=== PATIENT | female | born 1990 | race African-American/Black ===

== ENCOUNTER 2020-10-22 05:06 | Emergency (ER) | payer BC, MEDICAID ==
[~2020-10-22] VITALS: Ht 162.6 cm; Wt 107.0 kg
[2020-10-22 06:39] LABS: BASOPHILS % 0.5 % (0.0-2.0); EOSINOPHILS % 2.3 % (0.0-5.0); HEMOGLOBIN. 13.1 g/dL (12.0-16.0); LYMPHOCYTES % 22.4 % (20.0-50.0); MEAN CORPUSCULAR HEMOGLOBIN 28.8 pg (28.0-32.0); MEAN CORPUSCULAR VOLUME 86.1 fL (81.0-99.0); MEAN PLATELET VOLUME 8.9 fl (7.4-10.4); MONOCYTES % 8.6 % (2.0-8.0); NEUTROPHILS % 66.2 % (40.0-76.0); PLATELET 247 x1000/uL (130-400); RED BLOOD CELL COUNT 4.54 mill/uL (4.2-5.4); RED CELL DISTRIBUTION WIDTH 13.9 % (11.6-14.6)
[2020-10-22 06:46] LABS: CHLORIDE 111 mEq/L (98-107)
[2020-10-22] MEDS ORDERED: FAMOTIDINE 20MG/2ML VIAL IV STA (06:55)
[2020-10-22] MEDS ORDERED: SODIUM CHLORIDE 0.9% 1,000 ML IV ONE (07:00)
[2020-10-22 07:34] LABS: CLARITY URINE CLEAR (CLEAR); COLOR URINE YELLOW (YELLOW); KETONES URINE NEGATIVE (NEGATIVE); LEUKOCYTE ESTERASE URINE TRACE (NEGATIVE); NITRITE URINE NEGATIVE (NEGATIVE); OCCULT BLOOD URINE NEGATIVE (NEGATIVE); PROTEIN URINE NEGATIVE (NEGATIVE); UROBILINOGEN URINE 0.2 E.U./dL (0.2-1.0)
[2020-10-22 09:25] VITALS: BP 130/75
[2020-10-22] MEDS ORDERED: IOHEXOL-350 100 ML BOTTLE ONE (11:34)
== END 2020-10-22 09:29 | disposition home or self-care (01) ==
LOC: ER 05:06 → CANBEDREQ 13:17
DX: O26.893 Other specified pregnancy related conditions, third trimester (principal); J06.9 Acute upper respiratory infection, unspecified; R07.89 Other chest pain; Z3A.33 33 weeks gestation of pregnancy
CPT/HCPCS: 36415; 71045; 71275; 80053; 81003; 83880; 84484; 84702; 85025; 85379; 93005; 93970; 96361; 96374; 99285; J3490; J7030; Q9967

== ENCOUNTER 2021-02-04 23:21 | Emergency (ER) | payer BC, MEDICAID ==
[~2021-02-04] VITALS: Ht 162.6 cm; Wt 91.0 kg
[2021-02-05] MEDS ORDERED: MAGNESIUM/ALUMINUM HYDROXIDE/SIMETHICONE 30ML UDC PO STA (01:57)
[2021-02-05 02:12] LABS: BASOPHILS % 0.5 % (0.0-2.0); HEMATOCRIT. 39.7 % (36.0-48.0); HEMOGLOBIN. 13.7 g/dL (12.0-16.0); LYMPHOCYTES % 33.7 % (20.0-50.0); MEAN CORPUSCULAR HEMOGLOBIN 29.1 pg (28.0-32.0); MEAN CORPUSCULAR VOLUME 84.3 fL (81.0-99.0); MEAN PLATELET VOLUME 8.5 fl (7.4-10.4); MONOCYTES % 7.7 % (2.0-8.0); NEUTROPHILS % 55.1 % (40.0-76.0); PLATELET 272 x1000/uL (130-400); RED BLOOD CELL COUNT 4.71 mill/uL (4.2-5.4); RED CELL DISTRIBUTION WIDTH 14.7 % (11.6-14.6)
[2021-02-05 02:18] LABS: CHLORIDE 108 mEq/L (98-107)
[2021-02-05 02:22] LABS: HCG SCREEN NEGATIVE
[2021-02-05] MEDS ORDERED: KETOROLAC 15MG/ML VIAL IV NR (04:30)
[2021-02-05] MEDS ORDERED: ONDA4TAB5 MT (06:40)
[2021-02-05] MEDS ORDERED: PROT20 MT (06:40)
[2021-02-05 06:45] VITALS: BP 137/74
== END 2021-02-05 06:46 | disposition home or self-care (01) ==
LOC: ER 23:21
DX: R10.9 Unspecified abdominal pain (principal)
CPT/HCPCS: 36415; 76705; 80053; 83690; 84703; 85025; 96374; 99284; J1885

== ENCOUNTER 2021-11-07 18:24 | Emergency (ER) | payer BC, MEDICAID ==
[~2021-11-07] VITALS: Ht 162.6 cm; Wt 87.0 kg
[~2021-11-07 18:24] MED LIST: ONDA4TAB5 MT; PROT20 MT
[2021-11-07 19:01] VITALS: BP 146/86
[2021-11-07 20:16] LABS: BASOPHILS % 0.4 % (0.0-2.0); EOSINOPHILS % 1.9 % (0.0-5.0); HEMATOCRIT. 39.4 % (36.0-48.0); HEMOGLOBIN. 13.6 g/dL (12.0-16.0); LYMPHOCYTES % 23.9 % (20.0-50.0); MEAN CORPUSCULAR HEMOGLOBIN 29.4 pg (28.0-32.0); MEAN CORPUSCULAR VOLUME 85.2 fL (81.0-99.0); MEAN PLATELET VOLUME 8.6 fl (7.4-10.4); MONOCYTES % 12.1 % (2.0-8.0); NEUTROPHILS % 61.7 % (40.0-76.0); PLATELET 290 x1000/uL (130-400); RED BLOOD CELL COUNT 4.62 mill/uL (4.2-5.4); RED CELL DISTRIBUTION WIDTH 13.3 % (11.6-14.6)
[2021-11-07 20:23] LABS: CHLORIDE 107 mEq/L (98-107)
[2021-11-07 20:47] LABS: B-HCG QUANTITATIVE 35906 mIU/mL (<3)
[2021-11-07 21:21] LABS: CLARITY URINE CLEAR (CLEAR); COLOR URINE YELLOW (YELLOW); KETONES URINE NEGATIVE (NEGATIVE); LEUKOCYTE ESTERASE URINE NEGATIVE (NEGATIVE); NITRITE URINE NEGATIVE (NEGATIVE); OCCULT BLOOD URINE TRACE (NEGATIVE); PH URINE 6.5 (4.5-8.0); PROTEIN URINE NEGATIVE (NEGATIVE); SPECIFIC GRAVITY URINE 1.013 (1.005-1.030); UROBILINOGEN URINE 0.2 E.U./dL (0.2-1.0)
[2021-11-07] MEDS ORDERED: FAMO40TA70 MT (23:11)
== END 2021-11-07 23:58 | disposition home or self-care (01) ==
LOC: ER 18:24
DX: O26.891 Other specified pregnancy related conditions, first trimester (principal); O20.9 Hemorrhage in early pregnancy, unspecified; R10.11 Right upper quadrant pain; Z3A.12 12 weeks gestation of pregnancy
CPT/HCPCS: 36415; 76705; 76801; 80053; 81003; 81025; 84702; 85025; 86850; 86900; 99284

== ENCOUNTER 2023-10-08 19:01 | Emergency (ER) | payer MEDICAID ==
[~2023-10-08] VITALS: Ht 162.6 cm; Wt 103.0 kg
[~2023-10-08 19:01] MED LIST changes: +FAMO40TA70 MT
[2023-10-08 19:11] VITALS: O2SAT 100
[2023-10-08 21:01] LABS: BASOPHILS % 0.7 % (0.0-2.0); HEMATOCRIT. 36.7 % (36.0-48.0); HEMOGLOBIN. 12.6 g/dL (12.0-16.0); LYMPHOCYTES % 25.9 % (20.0-50.0); MEAN CORPUSCULAR HEMOGLOBIN 29.5 pg (28.0-32.0); MEAN CORPUSCULAR HGB CONC 34.2 g/dL (31.0-37.0); MEAN CORPUSCULAR VOLUME 86.2 fL (81.0-99.0); MEAN PLATELET VOLUME 8.5 fl (7.4-10.4); MONOCYTES % 7.8 % (2.0-8.0); NEUTROPHILS % 63.6 % (40.0-76.0); PLATELET 312 x1000/uL (130-400); RED BLOOD CELL COUNT 4.26 mill/uL (4.2-5.4); RED CELL DISTRIBUTION WIDTH 13.5 % (11.6-14.6); WHITE BLOOD COUNT 9.9 x1000/uL (4.5-11.0)
[2023-10-08 21:08] LABS: CHLORIDE 106 mEq/L (98-107); POTASSIUM 4.3 mEq/L (3.5-5.1); SODIUM 138 mEq/L (136-145)
[2023-10-08 21:09] LABS: CARBON DIOXIDE 27 mEq/L (21-32)
[2023-10-08 21:10] LABS: CALCIUM 9.8 mg/dL (8.7-10.4)
[2023-10-08 21:14] LABS: CREATININE 0.7 mg/dL (0.6-1.0); GLUCOSE 111 mg/dL (70-105)
[2023-10-08 21:15] LABS: UREA NITROGEN BLOOD 10 mg/dL (9-23)
[2023-10-08 21:16] LABS: ALANINE AMINOTRANSFERASE 29 IU/L (10-49); ALBUMIN 4.3 g/dL (3.2-4.8); ASPARTATE AMINOTRANSFERASE 20 IU/L (<34)
[2023-10-08 21:17] LABS: BILIRUBIN TOTAL 0.3 mg/dL (0.1-1.0); PROTEIN TOTAL 7.3 g/dL (6.0-8.3)
[2023-10-08 21:23] LABS: HCG SCREEN NEGATIVE
[2023-10-08 21:46] LABS: CLARITY URINE CLEAR (CLEAR); COLOR URINE YELLOW (YELLOW); GLUCOSE URINE NEGATIVE (NEGATIVE); KETONES URINE NEGATIVE (NEGATIVE); LEUKOCYTE ESTERASE URINE NEGATIVE (NEGATIVE); NITRITE URINE NEGATIVE (NEGATIVE); OCCULT BLOOD URINE TRACE (NEGATIVE); PH URINE 7.5 (4.5-8.0); PROTEIN URINE NEGATIVE (NEGATIVE); SPECIFIC GRAVITY URINE 1.006 (1.005-1.030); UROBILINOGEN URINE 0.2 E.U./dL (0.2-1.0)
[2023-10-08 22:44] LABS: BACTERIA URINE 1+; RBC URINE 0-2 /hpf (0-2); SQUAMOUS EPITHELIAL CELL URINE 1+ /lpf (RARE/1+); WBC URINE 0-2 /hpf (0-2)
[2023-10-09] MEDS: IOHEXOL-300 100 ML BOTTLE ONE (01:03)
[2023-10-09 02:54] VITALS: BP 117/73; PULSE 66; RESP 16; TEMP 98.6
== END 2023-10-09 02:59 | disposition home or self-care (01) ==
LOC: ER 19:01
DX: N83.201 Unspecified ovarian cyst, right side (principal); R10.31 Right lower quadrant pain
CPT/HCPCS: 99285; 80053; 81003; 84703; 83690; 85025; 36415; 74177; 76830; 76856; Q9967